=== PATIENT | female | born 1940 | race Native Hawaiian/Other Pacific Islander ===

== ENCOUNTER 2019-05-22 13:08 | Emergency (ER) | payer OTHER ==
[~2019-05-22] VITALS: Ht 167.6 cm; Wt 90.7 kg
[2019-05-22 13:20] VITALS: BP 146/52
[2019-05-22] MEDS ORDERED: CALCIUM CARBONA1 TA1 PO (14:56)
[2019-05-22] MEDS ORDERED: LANOXIN125 MCG PO (14:57)
[2019-05-22] MEDS ORDERED: DOCU100C10 PO (14:58)
[2019-05-22] MEDS ORDERED: GABA300C2 PO (14:59)
[2019-05-22] MEDS ORDERED: JANUVIA100 MG PO (14:59)
[2019-05-22] MEDS ORDERED: INSUINJP SC ×2 (15:01→15:03)
[2019-05-22] MEDS ORDERED: LEVO0.08 PO (15:05)
[2019-05-22] MEDS ORDERED: MELATONIN3 M2 PO (15:06)
[2019-05-22] MEDS ORDERED: PRADAXA150 MG PO (15:07)
[2019-05-22] MEDS ORDERED: QUETIAPINE25 MG PO (15:08)
[2019-05-22] MEDS ORDERED: SERT50TA PO (15:09)
[2019-05-22] MEDS ORDERED: VITAMIN D22000 UNIT PO (15:12)
== END 2019-05-22 13:25 | disposition other institution (70) ==
LOC: ED 13:08
DX: F03.91 Unspecified dementia, unspecified severity, with behavioral disturbance (principal); Z04.6 Encounter for general psychiatric examination, requested by authority
CPT/HCPCS: 99285